=== PATIENT | female | born 2000 | race Caucasian/White ===

== ENCOUNTER 2022-06-21 20:15 | Emergency (ER) | payer OTHER ==
[2022-06-21 20:30] VITALS: O2SAT 98
[2022-06-21] MEDS ORDERED: VISTARIL 100MG/2ML IM ONE ×2 (21:07→21:17)
--- NOTE | 2022-06-21 21:13 | ERPHSYRPT ---
- History of Present Illness Source: patient, other (Mother) Exam Limitations: no limitations Patient Subjective Stated Complaint: allergic reaction to lamictil, was stopped on Wednesday cold turkey. The rash is somewhat better but I feel like there's little bugs crawling on the inside, I'm itching so bad. Triage Nursing Assessment: pt ambulated into ER without diff, mom at bedside. Pt had an allergic reaction to lamictil and was seen at [facility] on 06/17/22. Pt's rash is slightly improved but states, "I'm itching so bad and I can't get any relief from it". Pt has red blotchy rash to arms, legs, belly and back. Pt c/o headache. Physician History: 21 yo WF w rash x2 wks. Pt was seen in [place] [facility] on 06/17/22, and it was presumed to be caused by Lamictal which was stopped. She was started on a tapering course of steroids, and Lamictal was stopped. Pt states that the rash is better, but pruritis has increased. She has mild nausea and ST but denies fever/cough/coryza/swelling of tongue/dysphagia/dyspnea. Pt does have some lona- orbital edema. Timing/Duration: week(s) (2 wks) Quality: itchy Severity: mild Location: generalized Possible Causes: other (Possible Lamictal) Associated Symptoms: denies symptoms, sore throat Allergies/Adverse Reactions: lamotrigine [From Lamictal] Adverse Reaction (Severe, Verified 06/21/22 20:41) Rash Home Medications: Buspirone HCl 5 mg [Buspar 5 mg] 20 mg PO BID 06/21/22 [History] Ethinyl Estradiol 1 gm PO DAILY 06/21/22 [History] Loratadine 10 mg [Claritin 10 mg] 10 mg PO DAILY 06/21/22 [History] Prednisone 20 mg [Deltasone 20 mg] 40 mg PO DAILY 06/21/22 [History] Hx Tetanus, Diphtheria Vaccination/Date Given: Yes Hx Influenza Vaccination/Date Given: No Hx Pneumococcal Vaccination/Date Given: No Travel Risk - International Travel Have you traveled outside of the country in past 3 weeks: No - Coronavirus Screening Are you exhibiting any of the following symptoms?: No Close contact with a COVID-19 positive Pt in past 14-21 Days: No - Vaccine Status Have you recieved a Covid-19 vaccination: Yes 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: [employer] - Vaccination Dates Date of 2cond Vaccination (if applicable): 09/11/20 - Review of Systems Constitutional: No Symptoms Eyes: No Symptoms, Itchy Ears, Nose, & Throat: No Symptoms Respiratory: No Symptoms Cardiac: No Symptoms Abdominal/Gastrointestinal: No Symptoms Genitourinary Symptoms: No Symptoms Musculoskeletal: No Symptoms Skin: No Symptoms, Rash Neurological: No Symptoms Psychological: No Symptoms Endocrine: No Symptoms Hematologic/Lymphatic: No Symptoms Immunological/Allergic: No Symptoms - Past Medical History Neurological History: No Pertinent History ENT History: No Pertinent History Cardiac History: No Pertinent History Respiratory History: No Pertinent History Endocrine Medical History: No Pertinent History Musculoskeletal History: No Pertinent History GI Medical History: No Pertinent History History: No Pertinent History Psycho-Social History: Anxiety, Depression Female Reproductive Disorders: No Pertinent History - Past Surgical History Past Surgical History: No - Social History Smoking Status: Former smoker Exposure to second hand smoke: Yes Drug Use: none Patient Lives Alone: No Significant Family History: no pertinent family hx - Female History Hx Last Menstrual Period: 06/03/22 Hx Now: No - Nursing Vital Signs Nursing Vital Signs: Initial Vital Signs Temperature 99.4 F 06/21/22 20:28 Pulse Rate 104 H 06/21/22 20:28 Respiratory Rate 16 06/21/22 20:28 Blood Pressure 127/77 06/21/22 20:28 O2 Sat by Pulse Oximetry 98 06/21/22 20:28 Pain Scale Pain Intensity 8 Mildly tachy - Physical Exam General Appearance: no apparent distress Eye Exam: PERRL/EOMI, other (Mild lona-orbital edema) Ears, Nose, Throat Exam: normal ENT inspection, TMs normal, pharynx normal (Mild erythema), moist mucous membranes Neck Exam: normal inspection, non-tender, supple, full range of motion Respiratory Exam: normal breath sounds, lungs clear, airway intact Cardiovascular Exam: normal heart sounds, normal peripheral pulses, tachycardia (Mild) Gastrointestinal/Abdomen Exam: soft, normal bowel sounds, No tenderness Back Exam: normal range of motion Extremity Exam: normal range of motion Neurologic Exam: alert, oriented x 3, cooperative, radio adjuster II-XII nml as tested, normal mood/affect, nml cerebellar function, nml station & gait, sensation nml, No motor deficits, No sensory deficit Skin Exam: rash (Diffuse, blanching erythematous rash) Lymphatic Exam: No adenopathy SpO2 Interpretation: normal SpO2: 98 O2 Delivery: Room Air - Course Nursing assessment & vital signs reviewed: Yes Ordered Tests: Active Orders 24 hr Category Date Time Status ALBUMIN Stat Lab 06/21/22 21:47 Completed ALKALINE PHOSPHATASE Stat Lab 06/21/22 21:47 Completed BILIRUBIN,TOTAL Stat Lab 06/21/22 21:47 Completed BMP Stat Lab 06/21/22 21:24 Completed CBC W DIFF Stat Lab 06/21/22 21:24 Completed SGOT/AST Stat Lab 06/21/22 21:47 Completed SGPT/ALT Stat Lab 06/21/22 21:47 Completed Total Protein Stat Lab 06/21/22 21:47 Completed Medication Summary Discontinued Medications Generic Name Dose Route Start Last Admin Trade Name Freq PRN Reason Stop Dose Admin Dexamethasone Sodium Phosphate 10 mg 06/21/22 22:19 06/21/22 22:22 Dexamethasone Sod Phosphate 10 Mg/Ml IM 06/21/22 22:20 10 mg STAT ONE Administration Dexamethasone Sodium Phosphate Confirm 06/21/22 22:20 Dexamethasone Sod Phosphate 10 Mg/Ml Administered 06/21/22 22:21 Dose 10 mg .ROUTE .STK-MED ONE Hydroxyzine HCl 50 mg 06/21/22 21:07 06/21/22 21:17 Hydroxyzine Hcl 100 Mg/2 Ml Vial IM 06/21/22 21:08 50 mg STAT ONE Administration Hydroxyzine HCl Confirm 06/21/22 21:17 Hydroxyzine Hcl 100 Mg/2 Ml Vial Administered 06/21/22 21:18 Dose 100 mg IM .STK-MED ONE Lab/Rad Data: Laboratory Result Diagrams 06/21/22 21:24 06/21/22 21:24 Laboratory Results 06/21/22 06/21/22 06/21/22 Range/Units 21:47 21:24 21:24 WBC (4.0-10.5) x10^3/uL RBC (4.1-5.4) x10^6/uL Hgb (12.0-16.0) g/dL Hct (35-47) % MCV (78-100) fL MCH (26-32) pg MCHC (32-36) g/dL RDW (11.5-14.0) % Plt Count (150-450) x10^3/uL MPV (7.5-11.0) fL Gran % (36.0-66.0) % Immature Gran % (Auto) (0.00-0.4) % Nucleat RBC Rel Count (0.00-0.1) % Eos # (Auto) (0-0.5) x10^3/uL Immature Gran # (Auto) (0.00-0.03) x10^3u/L Absolute Lymphs (auto) (1.0-4.6) x10^3/uL Absolute Monos (auto) (0.0-1.3) x10^3/uL Absolute Nucleated RBC (0.00-0.01) x10^3u/L Lymphocytes % (24.0-44.0) % Monocytes % (0.0-12.0) % Eosinophils % (0.00-5.0) % Basophils % (0.0-0.4) % Absolute Granulocytes (1.4-6.9) x10^3/uL Basophils # (0-0.4) x10^3/uL Sodium (137-145) mmol/L Potassium (3.5-5.1) mmol/L Chloride (98-107) mmol/L Carbon Dioxide (22-30) mmol/L Anion Gap (5-15) MEQ/L BUN (7-17) mg/dL Creatinine (0.52-1.04) mg/dL Estimated GFR ML/MIN Glucose (74-106) mg/dL Calcium (8.4-10.2) mg/dL Total Bilirubin 0.40 (0.2-1.3) mg/dL AST 23 (14-36) U/L ALT 20 (0-35) U/L Alkaline Phosphatase 67 (38-126) U/L Serum Total Protein 6.7 (6.3-8.2) g/dL Albumin 3.8 (3.5-5.0) g/dL Influenza Type A Ag NEGATIVE (NEGATIVE) Influenza Type B Ag NEGATIVE (NEGATIVE) RSV (PCR) NEGATIVE (NEGATIVE) SARS-CoV-2 (PCR) NEGATIVE (NEGATIVE) Group A Strep Antibody NOT DETECTED (NEGATIVE) 06/21/22 06/21/22 Range/Units 21:24 21:24 WBC 7.5 (4.0-10.5) x10^3/uL RBC 4.17 (4.1-5.4) x10^6/uL Hgb 12.4 (12.0-16.0) g/dL Hct 37.5 (35-47) % MCV 89.9 (78-100) fL MCH 29.7 (26-32) pg MCHC 33.1 (32-36) g/dL RDW 12.5 (11.5-14.0) % Plt Count 241 (150-450) x10^3/uL MPV 10.7 (7.5-11.0) fL Gran % 57.9 (36.0-66.0) % Immature Gran % (Auto) 0.1 (0.00-0.4) % Nucleat RBC Rel Count 0.0 (0.00-0.1) % Eos # (Auto) 0.50 (0-0.5) x10^3/uL Immature Gran # (Auto) 0.01 (0.00-0.03) x10^3u/L Absolute Lymphs (auto) 2.17 (1.0-4.6) x10^3/uL Absolute Monos (auto) 0.42 (0.0-1.3) x10^3/uL Absolute Nucleated RBC 0.00 (0.00-0.01) x10^3u/L Lymphocytes % 28.9 (24.0-44.0) % Monocytes % 5.6 (0.0-12.0) % Eosinophils % 6.6 H (0.00-5.0) % Basophils % 0.9 (0.0-0.4) % Absolute Granulocytes 4.35 (1.4-6.9) x10^3/uL Basophils # 0.07 (0-0.4) x10^3/uL Sodium 140 (137-145) mmol/L Potassium 3.2 L (3.5-5.1) mmol/L Chloride 107 (98-107) mmol/L Carbon Dioxide 28 (22-30) mmol/L Anion Gap 8.7 (5-15) MEQ/L BUN 11 (7-17) mg/dL Creatinine 0.66 (0.52-1.04) mg/dL Estimated GFR > 60.0 ML/MIN Glucose 84 (74-106) mg/dL Calcium 8.6 (8.4-10.2) mg/dL Total Bilirubin (0.2-1.3) mg/dL AST (14-36) U/L ALT (0-35) U/L Alkaline Phosphatase (38-126) U/L Serum Total Protein (6.3-8.2) g/dL Albumin (3.5-5.0) g/dL Influenza Type A Ag (NEGATIVE) Influenza Type B Ag (NEGATIVE) RSV (PCR) (NEGATIVE) SARS-CoV-2 (PCR) (NEGATIVE) Group A Strep Antibody (NEGATIVE) - Progress Progress Note: 06/21/22 22:20 Nursing note and vital signs reviewed No food or housing insecurities noted All labs results reviewed and shared w pt/mother Additional history per mother 50mg IM Vistaril w minimal improvement 10mg IM Decadron 06/21/22 23:29 Etiology of rash unclear but most likely due to Lamictal which has been discontinued 06/21/22 23:30 Counseled pt/family regarding: lab results, diagnosis, need for follow-up - Departure Departure Disposition: Home Clinical Impression: Allergic drug rash Condition: Stable Critical Care Time: No Referrals: TANGELA BUSTILLO [Primary Care Provider] - Follow up/PCP as directed Instructions: Adverse Drug Reactions, Adult (DC) Additional Instructions: Follow up with your mental health therapist or Dr. Bustillo in the morning Atarax as needed for itching and sleep Finish oral steroids Return to ER as needed Prescriptions: Hydroxyzine HCl 25 mg [Atarax 25 mg] 25 mg PO Q6H PRN PRN #15 tablet PRN Reason: Itching
[2022-06-21 21:26] LABS: Absolute Neutrophil Ct (ANC) 4.35 x10^3/uL (1.4-6.9); BASOPHIL % 0.9 % (0.0-0.4); Basophil (Absolute #) 0.07 x10^3/uL (0-0.4); Eosinophil % 6.6 % (0.00-5.0); Hematocrit 37.5 % (35-47); Hemoglobin 12.4 g/dL (12.0-16.0); IMMATURE GRAN # 0.01 x10^3u/L (0.00-0.03); IMMATURE GRAN % 0.1 % (0.00-0.4); Lymphocyte (Absolute #) 2.17 x10^3/uL (1.0-4.6); Lymphocytes % 28.9 % (24.0-44.0); Mean Cell Volume 89.9 fL (78-100); Mean Corpuscular Hemoglobin 29.7 pg (26-32); Mean Corpuscular Hgb Concent. 33.1 g/dL (32-36); Mean Platelet Volume 10.7 fL (7.5-11.0); Monocyte (Absolute #) 0.42 x10^3/uL (0.0-1.3); Monocytes % 5.6 % (0.0-12.0); Neutrophil % 57.9 % (36.0-66.0); Platelet Count 241 x10^3/uL (150-450); Red Blood Count 4.17 x10^6/uL (4.1-5.4); Red Cell Distribution Width 12.5 % (11.5-14.0); White Blood Count 7.5 x10^3/uL (4.0-10.5)
[2022-06-21 21:40] LABS: ANION GAP 8.7 MEQ/L (5-15); BLOOD UREA NITROGEN 11 mg/dL (7-17); CHLORIDE 107 mmol/L (98-107); Calcium 8.6 mg/dL (8.4-10.2); Carbon Dioxide 28 mmol/L (22-30); Creatinine 1 0.66 mg/dL (0.52-1.04); EST GLOMERULAR FILTRATION RATE > 60.0 ML/MIN; Glucose 84 mg/dL (74-106); Potassium 3.2 mmol/L (3.5-5.1); SODIUM 140 mmol/L (137-145)
[2022-06-21 21:57] LABS: ALBUMIN 3.8 g/dL (3.5-5.0); BILIRUBIN,TOTAL 0.4 mg/dL (0.2-1.3); Total Protein 6.7 g/dL (6.3-8.2)
[2022-06-21 22:03] LABS: INFLUENZA A NEGATIVE (NEGATIVE); INFLUENZA B NEGATIVE (NEGATIVE); RESPIRATORY SYNCTIAL VIRUS NEGATIVE (NEGATIVE); SARS-CoV-2 Xpert Express NEGATIVE (NEGATIVE)
[2022-06-21 22:07] VITALS: BP 100/67
[2022-06-21] MEDS ORDERED: DECADRON 10MG INJ. IM ONE (22:19)
[2022-06-21] MEDS ORDERED: DECADRON 10MG INJ. ONE (22:20)
[2022-06-21 22:37] VITALS: PULSE 81
== END 2022-06-21 22:41 | disposition home or self-care (01) ==
LOC: ED 20:15
DX: L27.0 Generalized skin eruption due to drugs and medicaments taken internally (principal); T42.6X5A Adverse effect of other antiepileptic and sedative-hypnotic drugs, initial encounter; R11.0 Nausea; J02.9 Acute pharyngitis, unspecified; Z79.52 Long term (current) use of systemic steroids; Z79.899 Other long term (current) drug therapy
CPT/HCPCS: 0241U; 36415; 80048; 82040; 82247; 83521; 84075; 84450; 84460; 85025; 87651; 96372; 99283; J1100; J3410